=== PATIENT | female | born 1990 | race Caucasian/White ===

== ENCOUNTER 2022-06-18 20:12 | Emergency (ER) | payer OTHER ==
[~2022-06-18] VITALS: Ht 172.7 cm; Wt 68.9 kg
[2022-06-18 21:47] VITALS: BP 111/69
== END 2022-06-18 21:48 | disposition home or self-care (01) ==
LOC: ED 20:12
DX: S60.445A External constriction of left ring finger, initial encounter (principal); W49.04XA Ring or other jewelry causing external constriction, initial encounter
CPT/HCPCS: 99283

== ENCOUNTER 2024-01-25 21:37 | Inpatient (IN) | payer OTHER ==
[~2024-01-25] VITALS: Ht 172.7 cm; Wt 81.6 kg
[2024-01-25] MEDS ORDERED: LACTATED RINGER'S 1,000 ML IV PRN (22:30)
[2024-01-25] MEDS ORDERED: MAGNESIUM HYDROXIDE/AL HYDROX 30 ML CUP PO PRN (22:30)
[2024-01-25] MEDS ORDERED: OXYTOCIN/DEXTROSE 5% 20 UNITS/100 ML BAG IV SCH (22:30)
[2024-01-25] MEDS ORDERED: CALCIUM CARBONATE 500 MG CHEW PO PRN (22:30)
[2024-01-25 23:00] VITALS: BP 133/61
[2024-01-25 23:16] LABS: ABO O; ANTIBODY SCREEN NEGATIVE; RH POSITIVE
[2024-01-25 23:22] LABS: AMPHETAMINES, URINE NEGATIVE (NEGATIVE); BARBITURATES, URINE NEGATIVE (NEGATIVE); BENZODIAZEPINE, URINE NEGATIVE (NEGATIVE); BUPRENORPHINE, URINE NEGATIVE (NEGATIVE); CANNABINOID, URINE NEGATIVE (NEGATIVE); COCAINE, URINE NEGATIVE (NEGATIVE); ECSTASY, URINE NEGATIVE (NEGATIVE); FENTANYL, URINE NEGATIVE (NEGATIVE); METHADONE, URINE NEGATIVE (NEGATIVE); OPIATES, URINE NEGATIVE (NEGATIVE); OXYCODONE, URINE NEGATIVE (NEGATIVE); PHENCYCLIDINE, URINE NEGATIVE (NEGATIVE)
[2024-01-25] MEDS ORDERED: OXYTOCIN 10 UNITS/ML VIAL IM SCH (23:45)
[2024-01-26] MEDS ORDERED: HYDROCORTISONE ACETATE 25 MG SUPP PR PRN (00:30)
[2024-01-26] MEDS ORDERED: OXYCODONE/APAP 5/325 TAB PO PRN (00:30)
[2024-01-26] MEDS ORDERED: MAGNESIUM HYDROXIDE 30 ML UDC PO PRN (00:30)
[2024-01-26] MEDS ORDERED: CALCIUM CARBONATE 500 MG CHEW PO PRN (00:30)
[2024-01-26] MEDS ORDERED: ACETAMINOPHEN 325 MG TAB PO PRN (00:30)
[2024-01-26] MEDS ORDERED: MAGNESIUM HYDROXIDE/AL HYDROX 30 ML CUP PO PRN (00:30)
[2024-01-26] MEDS ORDERED: IBUPROFEN 600 MG TAB PO PRN (00:30)
[2024-01-26] MEDS ORDERED: WITCH HAZEL/GLYCERIN 1 EA PAD TOP PRN (00:30)
[2024-01-26] MEDS ORDERED: OXYCODONE HCL 5 MG TAB PO PRN (00:30)
[2024-01-26] MEDS ORDERED: BENZOCAINE 60 ML AEROSOL TOP PRN (00:30)
[2024-01-26] MEDS ORDERED: OXYTOCIN/DEXTROSE 5% 20 UNITS/100 ML BAG IV SCH (00:30)
[2024-01-26] MEDS ORDERED: OXYTOCIN/0.9 % SODIUM CHLORIDE 500 ML IV SCH (00:30)
[2024-01-26] MEDS ORDERED: HYDROCODONE/ACETA 5/325 TAB PO PRN (00:30)
[2024-01-26] MEDS ORDERED: OXYTOCIN 10 UNITS/ML VIAL IM ONE (00:45)
[2024-01-26 05:26] LABS: HEMATOCRIT 35.9 % (35.0-50.0); HEMOGLOBIN 12.3 g/dL (12.0-18.0); MCH 29.6 (27-36); MCHC 34.2 g/dl (30-36); MCV 86.6 fl (81-99); RBC 4.14 M/ul (4.3-5.7); RDW 13.7 (10.5-15.0)
[2024-01-26] MEDS ORDERED: SENNOSIDES/DOCUSATE 1 EA TAB PO SCH (09:00)
--- NOTE | 2024-01-26 13:58 | PR ---
[facility] [address], [place] [address] Signed PP Progress Notes Datetime Report Generated by CPN: 01/26/2024 13:58 SUBJECTIVE: [id number] Pain: Within Normal Limits Nausea/Vomiting: Denies Flatus: No Bowel Movement: No Vital Signs: [id number] Vital Signs: Reviewed; Within Normal Limits Cardiovascular: Not Done Respiratory: Not Done Abdomen/Uterus: Normal Lochia: Normal Vulva/Perineum: Not Done Breasts: Not Done CVA Tenderness: Not Done Extremities: Normal Incision: Not Applicable Progress: Normal IMPRESSION/PLAN/PROCEDURES: [id number] Impression: Normal Progression Plan: Continue Present Management; Discharge Procedures: None Progress Notes: S: 33 yo s/p vaginal delivery at 2345 hrs on 01/24. PPD #1. Doing well. Denies LITTLE, CP, SOB, F/C, N/V, RUQ pain, changes in vision, vaginal discharge. Tolerating regular diet, ambulating, voiding on her own, pain controlled. O: AFVSS Abdomen: Uterus firm, appropriately TTP and below umbilicus. Musc: GARCIA. No C/C/E. A/P: 33 yo s/p late night vaginal delivery. Doing well. Despite late delivery, if baby passess 24 hr evaluation, she would like to be discharged home tonight. Will plan for discharge home. Signing Physician: Maynor Wiley MD *Electronically Signed* 01/26/24 [id number] MAYNOR WILEY MD PATIENT NAME: JUSTEN GARCIA PROGRESS NOTE DATE OF : 91 PHYSICIAN: MAYNOR WILEY MD RPT #: [id number] REPORT IS CONFIDENTIAL AND NOT TO BE RELEASED WITHOUT AUTHORIZATION
== END 2024-01-27 02:00 | disposition home or self-care (01) | DRG 807 ==
LOC: FBCO 21:37 → FBC 22:05
PROVIDERS: ADMIT Obstetrics & Gynecology; ATTEND Obstetrics & Gynecology
PROC: 10E0XZZ Delivery of Products of Conception, External Approach (ICD-10-PCS; principal; 2024-01-25)
DX: O48.0 Post-term pregnancy (principal); Z37.0 Single live birth; Z3A.41 41 weeks gestation of pregnancy; O26.893 Other specified pregnancy related conditions, third trimester; E88.819 Insulin resistance, unspecified; O99.353 Diseases of the nervous system complicating pregnancy, third trimester; G43.109 Migraine with aura, not intractable, without status migrainosus; O77.0 Labor and delivery complicated by meconium in amniotic fluid; Z86.39 Personal history of other endocrine, nutritional and metabolic disease
CPT/HCPCS: 36415; 80307; 85027; 86850; 86900; 86901; A9270; J2590